=== PATIENT | male | born 2000 | race Hispanic/Latino ===

== ENCOUNTER 2023-01-05 15:15 | Emergency (ER) | payer SELFPAY ==
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
[2023-01-05 15:13] VITALS: BP 125/80; PULSE 74; RESP 18; TEMP 36.7; O2SAT 100
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
[2023-01-05] MEDS: fentaNYL CITRATE INJ (*CRX) 100 MCG/2 ML VIAL 25 MCG IV PUSH (16:59)
[2023-01-05 18:30] VITALS: BP 126/73
== END 2023-01-05 18:20 | disposition home or self-care (01) ==
PROVIDERS: Emergency Provider Emergency Medicine
DX: S42.021A Displaced fracture of shaft of right clavicle, initial encounter for closed fracture (principal); V18.4XXA Pedal cycle driver injured in noncollision transport accident in traffic accident, initial encounter; Y93.55 Activity, bike riding
CPT/HCPCS: 73000; 73030; 96374; 99284; A4565; J3010